=== PATIENT | female | born 1960 | race Caucasian/White ===

== ENCOUNTER → 2020-07-05 | Outpatient (REF) | payer OTHER ==
[2020-07-05 13:30] LABS: HEMOGLOBIN A1c 6.2 %
[2020-07-05 13:33] LABS: ALBUMIN 4.2 GM/DL (3.2-5.2); BILIRUBIN,TOTAL 1.1 MG/DL (0.2-1.0); CALCIUM LEVEL 10.2 MG/DL (8.5-10.1); CHOLESTEROL RISK RATIO 4.05 (<5); CREATININE FOR GFR 1.42 MG/DL (0.55-1.30); GLOMERULAR FILTRATION RATE 40.4 (>51); TOTAL PROTEIN 8.6 GM/DL (6.4-8.2)
== END ==
LOC: M SFHCADAM 08:10
PROVIDERS: ATTEND Family Medicine
DX: E11.69 Type 2 diabetes mellitus with other specified complication (principal); K74.3 Primary biliary cirrhosis; Z86.73 Personal history of transient ischemic attack (TIA), and cerebral infarction without residual deficits

== ENCOUNTER → 2020-08-26 | Outpatient (REF) | payer OTHER ==
[2020-08-26 13:51] LABS: APPEARANCE, URINE CLEAR (CLEAR); BACTERIA, URINE AUTO NEGATIVE (NEGATIVE); BILIRUBIN, URINE AUTO NEGATIVE (NEGATIVE); BLOOD, URINE BLOOD NEGATIVE (NEGATIVE); COLOR, URINE YELLOW (YELLOW); GLUCOSE, URINE (UA) AUTO NEGATIVE (NEGATIVE); KETONE, URINE AUTO NEGATIVE (NEGATIVE); LEUKOCYTE ESTERASE, URINE AUTO TRACE (NEGATIVE); NITRITE, URINE AUTO NEGATIVE (NEGATIVE); PROTEIN, URINE AUTO NEGATIVE (NEGATIVE); RBC, URINE AUTO 0 /HPF (0-3); SPECIFIC GRAVITY URINE AUTO 1.016 (1.002-1.035); SQUAMOUS EPITHELIAL CELL UR AU 4 /HPF (0-6); WBC, URINE AUTO 3 /HPF (0-3)
[2020-08-26 13:57] LABS: ALBUMIN 3.7 GM/DL (3.2-5.2); BILIRUBIN,TOTAL 0.7 MG/DL (0.2-1.0); CREATININE FOR GFR 1.04 MG/DL (0.55-1.30); GLOMERULAR FILTRATION RATE 57.7 (>51); POTASSIUM SERUM 3.4 MEQ/L (3.5-5.1); TOTAL PROTEIN 7.6 GM/DL (6.4-8.2)
== END ==
LOC: M SFHCADAM 09:41
PROVIDERS: ATTEND Family Medicine
DX: E78.00 Pure hypercholesterolemia, unspecified (principal); N17.9 Acute kidney failure, unspecified

== ENCOUNTER → 2020-09-25 | Outpatient (CLI) | payer OTHER ==
--- NOTE | 2020-09-25 08:50 | REP ---
INDICATION: OCCLUSION/STENOSIS OF KAIN CAROTID ARTERIES COMPARISON: None. TECHNIQUE: Larose scale and color Doppler evaluation using linear high frequency transducer Findings: FINDINGS: Two-dimensional larose scale and color images demonstrate intimal thickening along the bilateral common carotid arteries followed by areas of mixed atheromatous plaquing at the carotid bulbs and proximal internal carotid arteries with visible focal areas of narrowing. Normal laminar flow is appreciated without turbulence. Color Doppler interrogation demonstrates normal arterial wave patterns and velocities with no significant spectral broadening. Normal flow direction is appreciated in the bilateral vertebral arteries. ICA peak systolic velocity: Right 87.4 cm/s; Left 99.8 cm/s ICA diastolic velocity: Right 32.9 cm/s; Left 39.7 cm/s ECA peak systolic velocity: Right 94.6 cm/s; Left 60.9 cm/s CCA peak systolic velocity: Right 92.0 cm/s; Left 72.4 cm/s ICA/CCA ratio: Right 0.95 cm/s; Left 1.38 cm/s IMPRESSION: Based on set standards narrowing falls within the less than 50% range. <Electronically signed by Jono John > 09/25/20 [id number]
== END ==
LOC: M RAD 08:00
PROVIDERS: ATTEND Physician Assistant
DX: I65.23 Occlusion and stenosis of bilateral carotid arteries (principal)

== ENCOUNTER → 2021-01-29 | Outpatient (REF) | payer MEDICARE ==
[2021-01-29 17:05] LABS: HEMOGLOBIN A1c 6.8 %
[2021-01-29 17:11] LABS: ALBUMIN 4.1 GM/DL (3.2-5.2); ALT/SGPT 29 U/L (12-78); BILIRUBIN,TOTAL 0.7 MG/DL (0.2-1.0); BLOOD UREA NITROGEN 9 MG/DL (7-18); CARBON DIOXIDE LEVEL 28 MEQ/L (21-32); CHLORIDE LEVEL 102 MEQ/L (98-107); CREATININE FOR GFR 0.98 MG/DL (0.55-1.30); GLOMERULAR FILTRATION RATE > 60.0 (>51); GLUCOSE, FASTING 117 MG/DL (70-100); POTASSIUM SERUM 4.3 MEQ/L (3.5-5.1); SODIUM LEVEL 136 MEQ/L (136-145); TOTAL PROTEIN 7.9 GM/DL (6.4-8.2)
== END ==
LOC: M SFHCADAM 11:09
PROVIDERS: ATTEND Family Medicine
DX: E11.69 Type 2 diabetes mellitus with other specified complication (principal); F32.9 Major depressive disorder, single episode, unspecified

== ENCOUNTER 2021-02-28 10:38 | Inpatient (IN) | payer MEDICARE ==
[~2021-02-28] VITALS: Ht 167.6 cm; Wt 93.3 kg
[2021-02-28] MEDS: ursodioL 300 MG CAP PO SCH (02:00)
[2021-02-28] MEDS ORDERED: ZONI25CA13 PO (10:53)
[2021-02-28] MEDS ORDERED: VENL37.598 PO (10:53)
[2021-02-28] MEDS ORDERED: URSO300C3 (10:53)
[2021-02-28] MEDS ORDERED: ATOR40TA75 PO (10:53)
[2021-02-28] MEDS ORDERED: ECOT81TA5 PO (10:53)
[2021-02-28] MEDS ORDERED: CLOP75TA2 PO (10:53)
[2021-02-28] MEDS ORDERED: HYDR50TAB PO (10:53)
[2021-02-28] MEDS ORDERED: LOSA25TA14 PO (10:53)
[2021-02-28] MEDS ORDERED: NS 1,000 ML IV ONE (13:00)
[2021-02-28 13:25] LABS: BASO # 0.1 10^3/uL (0.0-0.2); BASO % 0.5 % (0.0-1.0); EOS # 0.2 10^3/uL (0.0-0.5); EOS % 1.4 % (0.0-3.0); HEMATOCRIT 42.7 % (36.0-47.0); HEMOGLOBIN 14.7 g/dl (12.0-15.5); LYMPH % 15.6 % (24.0-44.0); MEAN CORPUSCULAR HEMOGLOBIN 29.9 pg (27.0-33.0); MEAN CORPUSCULAR HGB CONC 34.4 g/dl (32.0-36.5); MONO # 1.1 10^3/uL (0.0-0.8); MONO % 8.4 % (2.0-8.0); NEUTROPHILS # 9.2 10^3/uL (1.5-8.5); NEUTROPHILS % 73.3 % (36.0-66.0); PLATELET COUNT, AUTOMATED 400 10^3/uL (150-450); RED BLOOD COUNT 4.91 10^6/uL (4.00-5.40); WHITE BLOOD COUNT 12.5 10^3/uL (4.0-10.0)
[2021-02-28 14:16] LABS: CALCIUM LEVEL 10.2 MG/DL (8.5-10.1); CREATININE FOR GFR 1.84 MG/DL (0.55-1.30); GLOMERULAR FILTRATION RATE 29.9 (>51); POTASSIUM SERUM 2.5 MEQ/L (3.5-5.1); THYROID STIMULATING HORMONE 2.28 uIU/ML (0.358-3.740)
[2021-02-28] MEDS ORDERED: POTASSIUM CHLORIDE 10 MEQ SR TABLET PO ONE ×2 (14:35→18:25)
[2021-02-28] MEDS ORDERED: NS 500 ML IV ONE (14:45)
[2021-02-28 15:00] LABS: MAGNESIUM LEVEL 2.6 MG/DL (1.8-2.4)
--- NOTE | 2021-02-28 15:37 | REP ---
INDICATION: arf. COMPARISON: None. TECHNIQUE: Real-time sonographic evaluation of the kidneys is performed. FINDINGS: Renal cortical echogenicity pattern is normal bilaterally and contours are smooth. There is no hydronephrosis bilaterally. A hypoechoic structure in the lower pole the right kidney measures 1.4 cm in diameter probably representing a cyst. The right kidney measures 9.6 x 4.6 x 4.6 cm. Left renal dimensions are 9.8 x 3.7 x 4.5 cm. The urinary bladder is unremarkable. Ureteral jets could not be seen in the urinary bladder with Doppler color evaluation. IMPRESSION: No hydronephrosis or large calculi. Probable 1.4 cm cyst lower pole right kidney. <Electronically signed by Felix Larose > 02/28/21 [id number]
[2021-02-28] MEDS ORDERED: ZONI50CA11 PO (16:58)
[2021-02-28 17:52] LABS: RSV AMPLIFICATION NEGATIVE (NEGATIVE)
[2021-02-28] MEDS ORDERED: DEXTROSE 50% 50 ML SYRINGE IV PRN (18:25)
[2021-02-28] MEDS ORDERED: MAALOX 30 ML SUSP *UDC PO PRN (18:25)
[2021-02-28] MEDS ORDERED: GLUCAGON INJ 1MG VIAL SC PRN (18:25)
[2021-02-28] MEDS ORDERED: GLUCOSE 4GM CHEW TABLET PO PRN (18:25)
[2021-02-28] MEDS ORDERED: MOM 30ML SUSPENSION UDC PO PRN (18:25)
[2021-02-28] MEDS ORDERED: ACETAMINOPHEN TAB 650MG DOSE (2X325MG) PO PRN (18:25)
[2021-02-28 19:19] LABS: ALBUMIN 4.1 GM/DL (3.2-5.2)
--- NOTE | 2021-02-28 19:24 | HPEPDOC ---
[facility] Medical History & Physical Date of Admission Feb 28, 2021 Date of Service: Feb 28, 2021 Primary Care Physician: DOM FELICIANO DO Other Provider Dr. Collins, neurology Attending Physician: SHANNON MOORE MD History and Physical CHIEF COMPLAINT: Weakness HISTORY OF PRESENT ILLNESS: Cindi is a very pleasant 60yo female w/ notable PMHx of vertebral aretry dissection w/ subsequent CVA (2018), NIDDMII (diet-controlled), htn, and primary biliary cirrhosis who presented to the [facility] ED via personal vehicle driven by her on 02/28/2021, complaining of significant weakness with standing for roughly the past 5 weeks. Patient states that she has had trouble regulating her blood pressure for the past 3 years since she suffered a vertebral artery dissection and CVA in 2018. Since early January 2021, she has had significant weakness whenever standing. She was seen a few weeks ago by her primary care provider (Dr. Jones), at which time her verapamil was stopped and her home losartan dose cut in half to 25 mg daily. In addition to the losartan, patient also takes hydrochlorothiazide. Over the last 2 weeks specifically, her weaknesses has further increased. She is a former plant care worker and has been taking her home orthostatic vital signs since her sxs intensified; and reports every single time they are positive. More times than not when she is testing her home orthostats, or simply standing in general/being active, she has an accompanying 10/10 headache localized to her occipital region that is similar to a headache she developed at the time of her CVA. Accompanying this weakness and frequent headache, is associated instability issues. Patient has not had any falls over these last 5 weeks of symptoms but does have a history falls in the remote past. Patient reports having balance issues since the CVA with accompanying blurrine ss. She has peripheral vision loss in her right eye, which has been worse lately, especially when testing her orthostats. Of note, she reports 1 episode of emesis a few days ago while testing her orthostats at home, which she also had accompanying palpitations. She denies any tinnitus or ear pain. Also of significant note, patient reports a roughly 30 pound weight loss over the past 5 weeks and has recently had a decreased appetite with limited po intake. Patient also follows with neurology (Dr. Collins) who prescribed a new medication to assist in treating her headaches (Zonisamide). Per discussion with ED provider, patient had both a recent brain MRI (11/2020) and a brain MRA (02/20/21); with reported relevant findings of multiple old areas of infarct/occlusion. In addition, patient had mild stenosis of her right internal carotid artery (20%), and left internal carotid artery (3040 percent). Patient called her PCPs office this morning to see if she could be seen earlier than her next scheduled appointment on 03/07/21. Based on her reported symptoms, the PCPs triage staff erected. The patient to her neurologist office. When patient called the neurology office, she was directed to present to the ER. Upon presentation to ED, patient had positive orthostatic vital signs with an initial tachycardic rate. She was administered a total of 1.5 L bolus normal saline. She was found to have a mild leukocytosis (12.5, WBC) with a left shift and significant joint abnormalities; serum potassium 2.5 (sMg 2.6), serum sodium 132 (corrected also 132), serum calcium 10.2 (no albumin ordered). Patient had a serum creatinine of 1.84 (baseline is around 1) with a calculated GFR 29%. An EKG in the ED showed normal sinus rhythm with left axis deviation. A renal ultrasound showed no large calculi or hydronephrosis, and was remarkable only for unlikely 1.4 cm cyst in the lower pole of the right kidney. Patient was subsequently admitted under the care of the hospitalist service for weakness secondary to positive orthostatic hypotension, likely the result of combination of home medications and effects of prior CVA, along with acute kidney injury, and multiple electrolyte abnormalities. Patient is full code. The person she wishes to be contacted with medical updates is her August ([phone]). PAST MEDICAL HISTORY: Vertebral artery dissection and CVA, 2018 (this occurred in [place]) [id number]-[id number] diabetes mellitus II, diet controlled Hypertension Primary biliary cirrhosis PAST SURGICAL HISTORY: [place] teeth extraction Cervical biopsy. Bone biopsy of the right hand middle finger as a child Needle biopsy of the liver approximately 2004 SOCIAL HISTORY: Patient is and lives with her August. They have 1 adult son who lives in [place]. Patient formerly worked as a plant care worker, but stopped after suffering her CVA in 2018. Patient is a former smoker having quit when she was with her son roughly 28 years ago. Prior to that, she smoked for 16 years at a rate of approximately 3/4 packs per day. Patient averages 1 glass of wine or liquor every month. Patient reports occasionally ingesting marijuana po to help with sleep, otherwise she has no current or former illegal/IV drug use history. FAMILY HISTORY: Father: htn Mother: CAD s/p LA 2, hypertension, unspecified heart disease Patient has one sister and one son who are both healthy ALLERGIES: Please see below. REVIEW OF SYSTEMS: CONSTITUTIONAL: Reports significant weakness with standing and ambulation as discussed in HPI as well as unintentional weight loss of approximately 30 pounds in the past 5 weeks. She denies any fever, chills, or night sweats. HEENT: Reports decreased peripheral vision in the right eye that worsens with standing and ambulation. Denies tinnitus, ear pain. CARDIOVASCULAR: Denies any chest pain, chest pressure. Did report one episode of palpitations with home orthostatic vital sign test a few days ago. RESPIRATORY: Denies shortness of breath or cough GASTROINTESTINAL: Reports 1 episode of emesis a few days ago. Otherwise, denies any abdominal pain, nausea, diarrhea, constipation, amoxicillin as, or blood in stool. GENITOURINARY: Denies dysuria or hematuria MUSCULOSKELETAL: Reports significant weakness as discussed in HPI with ambulation and standing. NEUROLOGICAL: Reports frequent 10/10, headaches in the occipital region associated with her weakness episodes when standing or ambulating. HOME MEDICATIONS: Please see below. PHYSICAL EXAMINATION: VITAL SIGNS: Please see below. GENERAL APPEARANCE: Very pleasant moderately obese female lying upright in bed. No acute distress. HEENT: Normocephalic, atraumatic. There is mild left ptosis., PERRLA. Extraocular motion intact with some appreciated transient horizontal nystagmus. CARDIOVASCULAR: Heart sounds are quite distant, making it difficult to accurately discern for murmurs or rubs. 1+ radial pulses bilaterally. Adequate capillary refill. LUNGS: Bibasilar mild coarse breath sounds posteriorly, otherwise no other adventitious breath sounds appreciated. Breathing room air. Speaking in full sentences. Symmetric chest expansion. ABDOMEN: Soft, obese, nontender and nondistended. Difficult to assess for hepatosplenomegaly secondary to habitus. Abdominal striae present. Normoactive bowel sounds present. MUSCULOSKELETAL: 5/5 muscle strength testing of upper and lower extremities bilaterally. EXTREMITIES: Hands and feet are cool to the touch. Appears to be mild swelling in bilateral lower extremities without any appreciated pitting edema. NEUROLOGICAL: Patient has transient horizontal nystagmus on EOMI, as well as decreased right eye confrontation. Slower finger to nose testing on the right versus left, but still appropriate. Remainder of cranial nerve testing, 312 is intact. There is no dysdiadochokinesis. Sensation to light touch is intact of upper and lower extremities bilaterally. PSYCHIATRIC: Very pleasant mood. Appropriate appearing affect. LABORATORY DATA: Please see below. IMAGING: Renal ultrasound, 02/28/2021- FINDINGS: Renal cortical echogenicity pattern is normal bilaterally and contours are smooth. There is no hydronephrosis bilaterally. A hypoechoic structure in the lower pole the right kidney measures 1.4 cm in diameter probably representing a cyst. The right kidney measures 9.6 x 4.6 x 4.6 cm. Left renal dimensions are 9.8 x 3.7 x 4.5 cm. The urinary bladder is unremarkable. Ureteral jets could not be seen in the urinary bladder with Doppler color evaluation. IMPRESSION: No hydronephrosis or large calculi. Probable 1.4 cm cyst lower pole right kidney. MICROBIOLOGY: Please see below. ASSESSMENT & PLAN: This is a very pleasant 60yo female w/ notable h/o vertebral artery dissection & CVA (2018), htn, NIDDMII (diet-controlled), and reported primary ovarian cirrhosis who presented to the ED on 02/28/21 per recommendation of her n eurologist office c/o significant weakness over the past 5 weeks, specifically whenever standing or ambulating. Recent home orthostatic vital sign tests have reportedly been positive, and the patient develops frequent associated occipital headaches reminiscent of her prior CVA. In the ED, orthostatic vital signs were again positive and patient was found to have mild leukocytosis with multiple electrolyte abnormalities, as well as acute kidney injury. #Weakness secondary to orthostatic hypotension, likely the result of home medications and prior CVA -Positive orthostatics in the ED -Blood pressures reportedly have been hard to control since her CVA 3 years ago. She takes both an ARB and hydrochlorothiazide for high blood pressure at home. She also was started on a medication roughly 1 week ago (zonisamide) by her neurologist with known side effect dizziness/lightheadedness. -Recent MRI and MRA images of the brain showed multiple old infarcts/occlusions. In the setting of her persistent orthostatic hypotension, brain occlusions on imaging and hypertensive home medications, patient has multiple reasons for poor superior circulation to the brain/brainstem controlling to symptoms. -Both ARB and hctz held in the setting of weakness and acute kidney injury. Zonisamide held due to aforementioned side effects. -EKG in the ED showed normal sinus rhythm with left axis deviation. -Telemetry has been ordered -An echocardiogram has been ordered to rule out cardiovascular involvement in sy mptomatology. Per review of [facility] records, patient does not have a documented echocardiogram despite CVA 3 years ago. -s/p 1.5 L NS bolus in the ED; maintenance fluids initiated in setting of ari -2 blood cultures were drawn in the setting of hypotension and mild leukocytosis -TSH unremarkable -Fall risk precautions -Assisted ambulation only -PT evaluation ordered #Acute kidney injury -Serum creatinine 1.84; upon review, baseline appears to be around 1 -Patient received 1.5 L and is bolus administration. The ED. -Maintenance fluids have been ordered -Holding home losartan and hydrochlorothiazide -Renal ultrasound. The ED showed no hydronephrosis or large calculi -Avoiding nephrotoxic medications -Since patient is on diuretic medication at home, will use fractional excretion of urea to assess for etiology of ARI -Follow-up metabolic panel ordered for the morning #Multiple electrolyte abnormalities -Hypokalemia (serum potassium 2.5) -possibly 2/2 to home antihypertensive medications, recent poor po intake -s/p 40 mEq KCl PO in the ED -sMg 2.6 -A second 40 mEq PO KCL dose ordered -repeat AM metabolic panel ordered -True hyponatremia (sNa 132; corrected sNa 132) -Serum osmolality, urine sodium, and urine creatinine ordered -Hypercalcemia -sCa 10.2 -Albumin ordered to assess for corrected calcium -Should corrected calcium still be high, will likely order parathyroid hormone and parathyroid-related peptide hormone measurements to assess for possible causes #Leukocytosis -WBC 12.5 with left shift (73% neutrophils) -Status post normal saline bolus fluids in ED with maintenance fluids to follow -2 bcx ordered -Repeat CBC ordered for a.m. #Recent unintentional weight loss -Patient reports approximately 30 pound weight loss over the past 5 weeks. During her symptoms -Will review past medical record to assess for current/most recent cancer screenings (i.e., mammogram, colonoscopy, etc.) in the workup to rule out neoplastic etiology #Hqm-wgltwnd-hsinxolgl diabetes mellitus type 2, diet controlled -Consistent carb diet ordered with fingersticks before meals and at night.- Hypoglycemic protocol with sliding scale insulin #Prior vertebral artery dissection and CVA in 2018 -Recent MRI and MRA brain studies done with outpatient neurology are reported above -Follows with neurology as outpatient -Patient's home statin, Plavix, aspirin, ursodiol continued upon admission #History of hypertension -She was borderline hypotensive in the ED with positive orthostatic vital signs, indicative of orthostatic hypotension -Home hydrochlorothiazide and losartan medications being held in the setting of ARI -We will avoid 2 g sodium diet due to patient's positive orthostatics and decreased blood pressure in the ED #Obesity -BMI 31.5 -Complicates care #Suspected history of HLD -Patient's home statin medication and ursodiol continued upon admission #Suspected mood disorder -Home venlafaxine continued #DVT prophylaxis: sc heparin tid (in setting of rai) Code status: Full code Disposition: Pending further workup of weakness and resolution of acute kidney injury and electrolyte abnormalities. Will be admitted to medical surgical floor with telemetry and anticipated at least two midnight stay. Attending Attestation: Patient independently seen and examined. I have discussed in detail with the resident the findings and plan of treatment as documented by the resident. I a gree with their findings and treatment plan. I will continue to follow the patient during this hospital stay. Vital Signs Vital Signs Date Time Temp Pulse Resp B/P (MAP) Pulse Ox O2 Delivery O2 Flow Rate FiO2 02/28/21 18:45 98.0 66 18 125/79 (94) 100 Room Air Laboratory Data Labs 24H Laboratory Tests 2 02/28/21 13:10: Immature Granulocyte % (Auto) 0.8, Neutrophils (%) (Auto) 73.3H, Lymphocytes (%) (Auto) 15.6L, Monocytes (%) (Auto) 8.4H, Eosinophils (%) (Auto) 1.4, Basophils (%) (Auto) 0.5, Neutrophils # (Auto) 9.2H, Lymphocytes # (Auto) 2.0, Monocytes # (Auto) 1.1H, Eosinophils # (Auto) 0.2, Basophils # (Auto) 0.1, Nucleated Red Blood Cells % (auto) 0.0, Anion Gap 11, Glomerular Filtration Rate 29.9L, Osmolality 285, Calcium Level 10.2H, Magnesium Level 2.6H, Albumin 4.1, Thyroid Stimulating Hormone (TSH) 2.280 02/28/21 16:45: Coronavirus (COVID-19)(PCR) NEGATIVE, Influenza Type A (RT-PCR) NEGATIVE, Influenza Type B (RT-PCR) NEGATIVE, Respiratory Syncytial Virus (PCR) NEGATIVE CBC/BMP Laboratory Tests 02/28/21 13:10 Microbiology Microbiology 02/28/21 Blood Culture, Received Pending 02/28/21 Blood Culture, Received Pending Home Medications Scheduled Aspirin (Ecotrin) 81 Mg Tablet.dr, 81 MG PO DAILY Atorvastatin Calcium (Atorvastatin Calcium) 40 Mg Tablet, 40 MG PO QHS Clopidogrel Bisulfate (Clopidogrel) 75 Mg Tablet, 75 MG PO DAILY Hydrochlorothiazide (Hydrochlorothiazide) 50 Mg Tablet, 25 MG PO DAILY Losartan Potassium (Losartan Potassium) 25 Mg Tablet, 25 MG PO DAILY Ursodiol (Ursodiol) 300 Mg Capsule, 600 MG BID Venlafaxine HCl (Venlafaxine HCl ER) 37.5 Mg Cap.er.24h, 37.5 MG PO DAILY Zonisamide (Zonisamide) 25 Mg Capsule, 25 MG PO BID Zonisamide (Zonisamide) 50 Mg Capsule, 50 MG PO BID TITRATING UP FROM 25MG BID TO 50MG BID. ON 03/07/21 SWITCH TO 50MG QAM AND 25MG QHS. Allergies Coded Allergies: No Known Allergies (Verified Allergy, Unknown, 02/28/21) A-FIB/CHADSVASC A-FIB History Current/History of A-Fib/PAF?: No Current PO Anticoag Therapy: No MARLON CURTIS D.O. Feb 28, 2021 19:24 SHANNON MOORE MD Mar 01, 2021 06:31
--- NOTE | 2021-02-28 19:54 | ECGEPIP ---
[facility] - ED Test Date: 2021-02-28 Pat Name: ALEXA BROUSSARD Department: Room: - Gender: Female Topper Packer: YIN : 1960 Requested By: BRIAN Chavez Order Number: [id number] Reading MD: Brian Villafuerte Measurements Intervals [place] Rate: 83 P: -3 IN: 176 QRS: -35 QRSD: 90 T: 57 QT: 408 QTc: 479 Interpretive Statements Normal sinus rhythm Left axis deviation Nonspecific ST-T wave abnormalities Comparison tracing not on file Electronically Signed on 02-28-2021 19:54:05 EDT by Brian Villafuerte
[2021-02-28] MEDS ORDERED: HumaLOG INSULIN (NovoLOG) PER UNIT SC SCH (21:00)
[2021-02-28] MEDS ORDERED: ATORVASTATIN 20 MG TAB PO SCH (21:00)
[2021-02-28] MEDS: NS 1,000 ML IV SCH (22:01)
[2021-02-28 23:45] VITALS: BP 147/71
[2021-02-28 23:50] VITALS: BP 146/81
[2021-02-28 23:52] VITALS: BP 127/85
[2021-03-01] MEDS: NS 1,000 ML IV SCH (00:14)
[2021-03-01 04:00] VITALS: BP 141/96
[2021-03-01] MEDS: HEPARIN SOD (PORCINE) 5000UNITS/ML 1ML VIAL/SYRINGE SC SCH ×2 (05:31→14:00)
[2021-03-01 06:20] LABS: BASO # 0.1 10^3/uL (0.0-0.2); BASO % 0.7 % (0.0-1.0); EOS # 0.3 10^3/uL (0.0-0.5); EOS % 2.9 % (0.0-3.0); HEMATOCRIT 35.4 % (36.0-47.0); LYMPH # 2.1 10^3/uL (1.5-5.0); MEAN CORPUSCULAR HEMOGLOBIN 30.9 pg (27.0-33.0); MEAN CORPUSCULAR HGB CONC 34.5 g/dl (32.0-36.5); MEAN CORPUSCULAR VOLUME 89.6 fl (80.0-96.0); MONO # 0.8 10^3/uL (0.0-0.8); MONO % 7.6 % (2.0-8.0); NEUTROPHILS % 68.2 % (36.0-66.0); PLATELET COUNT, AUTOMATED 322 10^3/uL (150-450); RED BLOOD COUNT 3.95 10^6/uL (4.00-5.40); WHITE BLOOD COUNT 10.3 10^3/uL (4.0-10.0)
[2021-03-01 06:21] LABS: HEMOGLOBIN 12.2 g/dl (12.0-15.5)
[2021-03-01 06:38] LABS: CALCIUM LEVEL 8.6 MG/DL (8.5-10.1); CREATININE FOR GFR 1.31 MG/DL (0.55-1.30); GLOMERULAR FILTRATION RATE 44.2 (>51); POTASSIUM SERUM 3.2 MEQ/L (3.5-5.1)
[2021-03-01 06:39] LABS: ALBUMIN 3.2 GM/DL (3.2-5.2); BILIRUBIN,TOTAL 0.8 MG/DL (0.2-1.0); MAGNESIUM LEVEL 2.1 MG/DL (1.8-2.4); TOTAL PROTEIN 6.5 GM/DL (6.4-8.2)
[2021-03-01 07:29] VITALS: BP 153/70
[2021-03-01] MEDS: HumaLOG INSULIN (NovoLOG) PER UNIT SC SCH ×2 (07:30→11:20)
[2021-03-01] MEDS: ursodioL 300 MG CAP PO SCH (08:35)
[2021-03-01] MEDS ORDERED: ASPIRIN 81MG ENTERIC TABLET PO SCH (09:00)
[2021-03-01] MEDS ORDERED: VENLAFAXINE **XR** 37.5 MG CAPSULE PO SCH (09:00)
[2021-03-01] MEDS ORDERED: CLOPIDOGREL 75 MG TAB PO SCH (09:00)
[2021-03-01] MEDS ORDERED: POTASSIUM CHLORIDE 10 MEQ SR TABLET PO ONE (09:00)
[2021-03-01 11:52] VITALS: BP 123/82
[2021-03-01 11:53] LABS: CREATININE,RANDOM URINE 62.6 MG/DL
--- NOTE | 2021-03-01 19:48 | DS.PDOC ---
Discharge Summary General Date of Admission Feb 28, 2021 at 16:46 Date of Discharge Monday, March 01, 2021 Primary Care Physician: DOM FELICIANO DO Attending Physician: SHANNON MOORE MD Discharge Summary PROCEDURES PERFORMED DURING STAY: None ADMITTING DIAGNOSES: -Weakness secondary to orthostatic hypotension, likely the result of home medications and prior CVA -Acute kidney injury -Multiple electrolyte abnormalities: Hypokalemia, true hyponatremia, hy percalcemia -Leukocytosis -Recent unintentional weight loss -Osh-ramavdt-igvztlssy diabetes mellitus type 2, diet controlled -Prior vertebral artery dissection and CVA in 2018 -Hypertension -Obesity -Suspected history of hyperlipidemia -Suspected mood disorder DISCHARGE DIAGNOSES: -Weakness secondary to orthostatic hypotension, likely the result of home medications and prior CVA; improved -Acute kidney injury, improved -Multiple electrolyte abnormalities: Hypokalemia, resolved True hyponatremia, resolved Hypercalcemia, resolved -Leukocytosis, resolved -Recent unintentional weight loss; needs outpatient follow-up -Ftk-xgneguj-zrrauytqy diabetes mellitus type 2, diet controlled -Prior vertebral artery dissection and CVA in 2018 -Hypertension -Obesity -Suspected history of hyperlipidemia -Suspected mood disorder COMPLICATIONS/CHIEF COMPLAINT: Acute Renal Failure,Orthostatis. HISTORY OF PRESENT ILLNESS: Cindi is a very pleasant 60yo female w/ notable PMHx of vertebral aretry dissection w/ subsequent CVA (2018), NIDDMII (diet-controlled), htn, and primary biliary cirrhosis who presented to the [facility] ED via personal vehicle driven by her on 02/28/2021, complaining of significant weakness with standing for roughly the past 5 weeks. Patient states that she has had trouble regulating her blood pressure for the past 3 years since she suffered a vertebral artery d issection and CVA in 2018. Since early January 2021, she has had significant weakness whenever standing. She was seen a few weeks ago by her primary care provider (Dr. Jones), at which time her verapamil was stopped and her home losartan dose cut in half to 25 mg daily. In addition to the losartan, patient also takes hydrochlorothiazide. Over the last 2 weeks specifically, her weaknesses has further increased. She is a former forming machine operator and has been taking her home orthostatic vital signs since her sxs intensified; and reports every single time they are positive. More times than not when she is testing her home orthostats, or simply standing in general/being active, she has an accompanying 10/10 headache localized to her occipital region that is similar to a headache she developed at the time of her CVA. Accompanying this weakness and frequent headache, is associated instability issues. Patient has not had any falls over these last 5 weeks of symptoms but does have a history falls in the remote past. Patient reports having balance issues since the CVA with accompanying blurrines s. She has peripheral vision loss in her right eye, which has been worse lately, especially when testing her orthostats. Of note, she reports 1 episode of emesis a few days ago while testing her orthostats at home, which she also had accompanying palpitations. She denies any tinnitus or ear pain. Also of significant note, patient reports a roughly 30 pound weight loss over the past 5 weeks and has recently had a decreased appetite with limited po intake. Patient also follows with neurology (Dr. Collins) who prescribed a new medication to assist in treating her headaches (Zonisamide). Per discussion with ED provider, patient had both a recent brain MRI (11/2020) and a brain MRA (02/20/21); with reported relevant findings of multiple old areas of infarct/occlusion. In addition, patient had mild stenosis of her right internal carotid artery (20%), and left internal carotid artery (3040 percent). Patient called her PCPs office this morning to see if she could be seen earlier than her next scheduled appointment on 03/07/21. Based on her reported symptoms, the PCPs triage staff erected. The patient to her neurologist office. When patient called the neurology office, she was directed to present to the ER. Upon presentation to ED, patient had positive orthostatic vital signs with an initial tachycardic rate. She was administered a total of 1.5 L bolus normal saline. She was found to have a mild leukocytosis (12.5, WBC) with a left shift and significant joint abnormalities; serum potassium 2.5 (sMg 2.6), serum sodium 132 (corrected also 132), serum calcium 10.2 (no albumin had been ordered). Patient had a serum creatinine of 1.84 (baseline is around 1) with a calculated GFR 29%. An EKG in the ED showed normal sinus rhythm with left axis deviation. A renal ultrasound showed no large calculi or hydronephrosis, and was remarkable only for unlikely 1.4 cm cyst in the lower pole of the right kidney. Patient was subsequently admitted under the care of the hospitalist service for weakness secondary to positive orthostatic hypotension, likely the result of combination of home medications and effects of prior CVA, along with acute kidney injury, and multiple electrolyte abnormalities. Patient is full code. The person she wishes to be contacted with medical updates is her August ([phone]). HOSPITAL COURSE: This is a very pleasant 60yo female w/ notable h/o vertebral artery dissection & CVA (2018), htn, NIDDMII (diet-controlled), and reported primary ovarian cir rhosis who presented to the ED on 02/28/21 per recommendation of her neurologist office c/o significant weakness over the past 5 weeks, specifically whenever standing or ambulating. Recent home orthostatic vital sign tests have reportedly been positive, and the patient develops frequent associated occipital headaches reminiscent of her prior CVA. In the ED, orthostatic vital signs were again positive and patient was found to have mild leukocytosis with multiple electrolyte abnormalities, as well as acute kidney injury. #Weakness secondary to orthostatic hypotension, likely the result of home m edications and prior CVA -Positive orthostatics in the ED -Blood pressures reportedly have been hard to control since her CVA 3 years ago. She takes both an ARB and hydrochlorothiazide for high blood pressure at home. She also was started on a medication roughly 1 week ago (zonisamide) by her neurologist with known side effect dizziness/lightheadedness. -Recent MRI and MRA images of the brain showed multiple old infarcts/occlusions. In the setting of her persistent orthostatic hypotension, brain occlusions on imaging and hypertensive home medications, patient has multiple reasons for poor superior circulation to the brain/brainstem controlling to symptoms. -Both ARB and hctz were held in the setting of weakness and acute kidney injury. Zonisamide held due to aforementioned side effects. -EKG in the ED showed normal sinus rhythm with left axis deviation. -Patient was on telemetry upon admission. -An echocardiogram has been ordered to rule out cardiovascular involvement in symptomatology. Report of echo was unremarkable other than grade 1 diastolic dysfunction. -Per review of [facility] records, patient does not have a documented echocardiogram despite CVA 3 years ago. -s/p 1.5 L NS bolus in the ED; maintenance fluids were started in the setting of her presenting ARI -2 blood cultures were drawn in the setting of hypotension and mild leukocytosis and showed no growth after 24 hours at time of discharge -TSH unremarkable -Fall risk precautions were ordered -Assisted ambulation only was ordered -PT evaluation ordered and after evaluation, they recommended simply being discharged home #Acute kidney injury, improved -Initial serum creatinine was 1.84; upon review, baseline appears to be around 1 -Creatinine improved to 1.3 on day 2 of admission -Patient received 1.5 L and is bolus administration in the ED. -Maintenance fluids were ordered upon admission -Home losartan and hydrochlorothiazide were held upon admission -Renal ultrasound ordered in the ED which showed no hydronephrosis or large calculi -Nephrotoxic medications were avoided -Fractional excretion of urea was used for calculation of etiology of kidney disease as patient is on home diuretics. #Multiple electrolyte abnormalities -Hypokalemia, improved: (serum potassium 2.5 initially, improved to 3.2 on day 2 and was subsequently given another 40 mEq of oral potassium, chloride -possibly 2/2 to home antihypertensive medications, recent poor po intake -s/p 40 mEq KCl PO in the ED -sMg was not low -A second 40 mEq PO KCL dose ordered on day of admission, repeat 40 mEq dose given on day 2 of hospital stay -True hyponatremia, resolved: (sNa 132; corrected sNa 132; day 2. Serum sodium was 138) -Serum osmolality, urine sodium, and urine creatinine were all ordered upon admission -Hypercalcemia, resolved -sCa 10.2 initially, was 8.6 on repeat measurement -Albumin ordered to assess for corrected calcium -PCP can give consideration to possibly ordering parathyroid hormone and parathyroid-related peptide values upon outpatient #Leukocytosis, improved -Initial WBC 12.5 with left shift (73% neutrophils); WBC improved to 10.3 on day of discharge with a decreased left shift -Status post normal saline bolus fluids in ED with maintenance fluids to follow -2 bcx ordered and had no growth after 24 hours #Recent unintentional weight loss -Patient reported approximately 30 pound weight loss over the past 5 weeks at time of admission -She reports being up-to-date on her mammograms and colonoscopies. Upon questioning -This is a significant issue that needs to be addressed by primary care provider upon outpatient follow-up #Ooe-koxdexj-ghdmqxhsa diabetes mellitus type 2, diet controlled -Consistent carb diet ordered with fingersticks before meals and at night were ordered upon admission. -Hypoglycemic protocol with sliding scale insulin was also ordered upon admission. #Prior vertebral artery dissection and CVA in 2018 -Recent MRI and MRA brain studies done with outpatient neurology are reported above -Follows with neurology as outpatient -Patient's home statin, Plavix, aspirin, ursodiol were all continued upon admission #History of hypertension -She was borderline hypotensive in the ED with positive orthostatic vital signs, indicative of orthostatic hypotension -Home hydrochlorothiazide and losartan medications were held in the setting of ARI -Collaborative decision was made to avoid 2 g sodium diet . Upon admission due to patient's positive orthostatics and decreased blood pressure in the ED #Obesity -BMI 31.5 -Complicates care, both inpatient and outpatient. #Suspected history of HLD -Patient's home statin medication and ursodiol were continued upon admission #Suspected mood disorder -Home venlafaxine was continued upon admission #DVT prophylaxis: sc heparin tid ordered in the setting of patient's acute renal failure. Code status: Full code DISCHARGE MEDICATIONS: Please see below. ALLERGIES: Please see below. PHYSICAL EXAMINATION ON DISCHARGE: VITAL SIGNS: Please see below. GENERAL APPEARANCE: Very pleasant moderately obese female lying upright in bed. No acute distress. HEENT: Normocephalic, atraumatic. There is mild left ptosis. PERRLA. CARDIOVASCULAR: Heart sounds remain quite distant, making it difficult to accurately discern for murmurs or rubs. 1+ radial pulses bilaterally. Adequate capillary refill. LUNGS: Bibasilar mild coarse breath sounds posteriorly remain, otherwise no other adventitious breath sounds appreciated. Breathing room air. Speaking in full sentences. Symmetric chest expansion. ABDOMEN: Soft, obese. No distention or tenderness. Difficult to assess for hepatosplenomegaly secondary to habitus. Abdominal striae present. Normoactive bowel sounds present. MUSCULOSKELETAL: 5/5 muscle strength testing of upper and lower extremities bilaterally. EXTREMITIES: Hands and feet are cool to the touch. Appears to be mild swelling in bilateral lower extremities without any appreciated pitting edema. NEUROLOGICAL: Horizontal nystagmus on EOMI, as well as decreased right eye confrontation. Slower finger to nose testing on the right versus left, but still appropriate. Remainder of cranial nerve testing, 312 is intact. There is no dysdiadochokinesis. Sensation to light touch is intact of upper and lower extremities bilaterally. PSYCHIATRIC: Very pleasant mood. Appropriate appearing affect. LABORATORY DATA: Please see below. IMAGING: Renal ultrasound, 02/28/21 FINDINGS: Renal cortical echogenicity pattern is normal bilaterally and contours are smooth. There is no hydronephrosis bilaterally. A hypoechoic structure in the lower pole the right kidney measures 1.4 cm in diameter probably representing a cyst. The right kidney measures 9.6 x 4.6 x 4.6 cm. Left renal dimensions are 9.8 x 3.7 x 4.5 cm. The urinary bladder is unremarkable. Ureteral jets could not be seen in the urinary bladder with Doppler color evaluation. IMPRESSION: No hydronephrosis or large calculi. Probable 1.4 cm cyst lower pole right kidney. Transthoracic echocardiogram, 03/01/21 2D COMMENTS: 1. Technically limited study due to poor acoustic window. The left ventricle size is normal with a normal left ventricular wall thickness and systolic function. The estimated left ventricular systolic ejection fraction is 60% to 65%. 2. Normal left atrium. Normal right atrium and right ventricle noted in limited views. 3. The atrial septum appeared to be normal without evidence of defect or shunt. 4. Normal aortic root. 5. No pericardial effusion seen. 6. The aortic valve, mitral valve, and tricuspid valve appear to be normal in limited views. The pulmonic valve and proximal pulmonary artery branches were not well visualized. 7. The inferior vena cava was not well visualized. DOPPLER: No significant valvular abnormalities detected. Abnormal relaxation pattern was noted across the mitral valve leaflets, as well as the mitral valve annulus consistent with features of grade 1 left ventricular diastolic dysfunction. IMPRESSION: 1. Technically limited study due to poor acoustic window. 2. Normal global left ventricular systolic function. There were some features of grade 1 left ventricular diastolic dysfunction manifested by abnormal relaxation. 3. No significant valvular abnormalities. 4. Bubble study was done, inconclusive because the entire study was technically limited due to poor acoustic window. PROGNOSIS: Fair ACTIVITY: As tolerated DIET: -Fluid restriction DISPOSITION: [facility]. DISCHARGE INSTRUCTIONS & ITEMS TO FOLLOWUP ON ON OUTPATIENT: -Patient is to follow up with primary care physician in 35 days and to reevaluate blood pressures with primary care provider upon said follow-up. -Continue to follow with neurology as outpatient per previous schedule -If symptoms return or worsen, please contact primary care provider or go to the emergency room. DISCHARGE CONDITION: Stable TIME SPENT ON DISCHARGE: 36 minutes Vital Signs/I&Os Vital Signs Date Time Temp Pulse Resp B/P (MAP) Pulse Ox O2 Delivery O2 Flow Rate FiO2 03/01/21 11:52 97.0 63 18 123/82 (96) 100 Room Air I&O- Last 24 Hours up to 6 AM 03/01/21 06:00 Intake Total 1750 ml Output Total 500 ml Balance 1250 ml Laboratory Data Labs 24H Laboratory Tests 2 03/01/21 00:10: Bedside Glucose (Misc Panel) 129H 03/01/21 05:52: Immature Granulocyte % (Auto) 0.6, Neutrophils (%) (Auto) 68.2H, Lymphocytes (%) (Auto) 20.0L, Monocytes (%) (Auto) 7.6, Eosinophils (%) (Auto) 2.9, Basophils (%) (Auto) 0.7, Neutrophils # (Auto) 7.0, Lymphocytes # (Auto) 2.1, Monocytes # (Auto) 0.8, Eosinophils # (Auto) 0.3, Basophils # (Auto) 0.1, Nucleated Red Blood Cells % (auto) 0.0, Anion Gap 8, Glomerular Filtration Rate 44.2L, Calcium Level 8.6#, Magnesium Level 2.1, Total Bilirubin 0.8, Aspartate Amino Transf (AST/SGOT) 27, Alanine Aminotransferase (ALT/SGPT) 29, Alkaline Phosphatase 254H, Total Protein 6.5, Albumin 3.2#, Albumin/Globulin Ratio 1.0L 03/01/21 10:59: Urine Color YELLOW, Urine Appearance CLEAR, Urine pH 7.0, Urine Specific [place] 1.008, Urine Protein NEGATIVE, Urine Glucose (UA) NEGATIVE, Urine Ketones NE GATIVE, Urine Blood NEGATIVE, Urine Nitrite NEGATIVE, Urine Bilirubin NEGATIVE, Urine Urobilinogen 0.2, Urine Leukocyte Esterase NEGATIVE, Urine WBC (Auto) 2, Urine RBC (Auto) 0, Urine Hyaline Casts (Auto) 0, Urine Bacteria (Auto) NEGATIVE, Urine Squamous Epithelial Cells 1, Urine Sperm (Auto) , Urine Osmolality 387, Urine Random Creatinine 62.6, Urine Random Sodium 125, Urine Random Urea Nitrogen 224 03/01/21 11:17: Bedside Glucose (Misc Panel) 147H CBC/BMP Laboratory Tests 03/01/21 05:52 FSBS Laboratory Tests Test 03/01/21 00:10 03/01/21 11:17 Range/Units Bedside Glucose (Misc Panel) 129 147 70-105 MG/DL Microbiology Microbiology 02/28/21 Blood Culture - Preliminary, Resulted No growth after 24 hours . All specim... 02/28/21 Blood Culture - Preliminary, Resulted No growth after 24 hours . All specim... Discharge Medications Scheduled Aspirin (Ecotrin) 81 Mg Tablet.dr, 81 MG PO DAILY, (Reported) Atorvastatin Calcium (Atorvastatin Calcium) 40 Mg Tablet, 40 MG PO QHS, (Reported) Clopidogrel Bisulfate (Clopidogrel) 75 Mg Tablet, 75 MG PO DAILY, (Reported) Losartan Potassium (Losartan Potassium) 25 Mg Tablet, 25 MG PO DAILY, (Reported) Ursodiol (Ursodiol) 300 Mg Capsule, 600 MG BID, (Reported) Venlafaxine HCl (Venlafaxine HCl ER) 37.5 Mg Cap.er.24h, 37.5 MG PO DAILY, (Reported) Zonisamide (Zonisamide) 25 Mg Capsule, 25 MG PO BID, (Reported) Zonisamide (Zonisamide) 50 Mg Capsule, 50 MG PO BID, (Reported) TITRATING UP FROM 25MG BID TO 50MG BID. ON 03/07/21 SWITCH TO 50MG QAM AND 25MG QHS. Allergies Coded Allergies: No Known Allergies (Verified Allergy, Unknown, 02/28/21) MARLON CURTIS D.O. Mar 01, 2021 19:48
--- NOTE | 2021-03-01 20:25 | ECHO ---
ECHOCARDIOGRAM DATE OF PROCEDURE: 03/01/2021 Age: 60 Gender: Female Height: Weight: REFERRING PHYSICIAN: Aditya Sheridan DO. PATIENT LOCATION: Room 3227. REASON FOR STUDY: Cerebrovascular accident (CVA) . 2D MEASUREMENTS: IVS 1.1 cm LVPW 1.2 cm LV 3.5 cm Aorta 3.4 cm LA 3.3 cm DOPPLER MEASUREMENT Peak velocity across the LVOT 0.9 m/s Mitral E 0.67 Mitral A 0.92 with a ratio of 0.73 2D COMMENTS: 1. Technically limited study due to poor acoustic window. The left ventricle size is normal with a normal left ventricular wall thickness and systolic function. The estimated left ventricular systolic ejection fraction is 60% to 65%. 2. Normal left atrium. Normal right atrium and right ventricle noted in limited views. 3. The atrial septum appeared to be normal without evidence of defect or shunt. 4. Normal aortic root. 5. No pericardial effusion seen. 6. The aortic valve, mitral valve, and tricuspid valve appear to be normal in limited views. The pulmonic valve and proximal pulmonary artery branches were not well visualized. 7. The inferior vena cava was not well visualized. DOPPLER: No significant valvular abnormalities detected. Abnormal relaxation pattern was noted across the mitral valve leaflets, as well as the mitral valve annulus consistent with features of grade 1 left ventricular diastolic dysfunction. IMPRESSION: 1. Technically limited study due to poor acoustic window. 2. Normal global left ventricular systolic function. There were some features of grade 1 left ventricular diastolic dysfunction manifested by abnormal relaxation. 3. No significant valvular abnormalities. 4. Bubble study was done, inconclusive because the entire study was technically limited due to poor acoustic window.
== END 2021-03-01 14:58 | disposition hospice, home (50) | DRG 948 ==
LOC: M ED 10:38 → M ED INP 16:46 → ENRESERV 22:17 → M PCU 23:37
PROVIDERS: ADMIT Internal Medicine; ATTEND Internal Medicine
DX: R53.1 Weakness (principal); N17.9 Acute kidney failure, unspecified; E87.1 Hypo-osmolality and hyponatremia; Z86.73 Personal history of transient ischemic attack (TIA), and cerebral infarction without residual deficits; E10.9 Type 1 diabetes mellitus without complications; I10 Essential (primary) hypertension; K74.5 Biliary cirrhosis, unspecified; R51.9 Headache, unspecified; Z87.891 Personal history of nicotine dependence; I95.1 Orthostatic hypotension; E87.8 Other disorders of electrolyte and fluid balance, not elsewhere classified; E86.0 Dehydration; E87.6 Hypokalemia; E83.52 Hypercalcemia; D72.829 Elevated white blood cell count, unspecified; R63.4 Abnormal weight loss; E66.9 Obesity, unspecified; Z68.31 Body mass index [BMI] 31.0-31.9, adult; E78.5 Hyperlipidemia, unspecified; F39 Unspecified mood [affective] disorder; Z20.822 Contact with and (suspected) exposure to COVID-19; Z79.82 Long term (current) use of aspirin; Z79.899 Other long term (current) drug therapy

== ENCOUNTER → 2021-03-07 | Outpatient (REF) | payer MEDICARE ==
[~2021-03-07] MED LIST: ATOR40TA75 PO; CLOP75TA2 PO; ECOT81TA5 PO; HYDR50TAB PO; LOSA25TA14 PO; URSO300C3; VENL37.598 PO; ZONI25CA13 PO; ZONI50CA11 PO
[2021-03-07 13:41] LABS: ALBUMIN 3.4 GM/DL (3.2-5.2); ALT/SGPT 29 U/L (12-78); BILIRUBIN,TOTAL 0.4 MG/DL (0.2-1.0); BLOOD UREA NITROGEN 9 MG/DL (7-18); CALCIUM LEVEL 9.4 MG/DL (8.5-10.1); CARBON DIOXIDE LEVEL 25 MEQ/L (21-32); CHLORIDE LEVEL 111 MEQ/L (98-107); CREATININE FOR GFR 0.97 MG/DL (0.55-1.30); GLOMERULAR FILTRATION RATE > 60.0 (>51); GLUCOSE, FASTING 100 MG/DL (70-100); POTASSIUM SERUM 4.8 MEQ/L (3.5-5.1); SODIUM LEVEL 141 MEQ/L (136-145); TOTAL PROTEIN 6.8 GM/DL (6.4-8.2)
== END ==
LOC: M SFHCADAM 10:25
PROVIDERS: ATTEND Family Medicine
DX: N17.9 Acute kidney failure, unspecified (principal); E87.6 Hypokalemia

== ENCOUNTER → 2021-03-17 | Outpatient (CLI) | payer MEDICARE ==
--- NOTE | 2021-03-17 14:33 | REP ---
INDICATION: MASS OF RT SIDE OF NECK. COMPARISON: None. TECHNIQUE: Bilateral neck soft tissue sonography. Left side for comparison. Right-sided in the area of interest. FINDINGS: Multiple bilateral cervical lymph nodes are observed. In the right neck in the area the palpable lump there are 4 identifiable lymph nodes measured as follows: 1.1 x 0.6 x 0.6, 1.6 x 0.5 x 1.3, 0.9 x 0.5 x 0.9, and 1.1 x 0.6 x 0.9 cm respectively. In these lymph nodes have preserved hilar architecture but appears somewhat hypertrophied with cortical thickening. In the left neck there are 2 lymph nodes visible in the same area measured as follows: 0.8 x 0.3 x 0.8 and 2.4 x 0.6 x 1.3 cm. The visualized lymph nodes in the left neck have similar morphology to those seen on the right, that is, somewhat hypertrophied. IMPRESSION: Bilateral cervical lymphadenopathy. This is nonspecific. Recommend soft tissue neck CT study for better visualization of extent and as a baseline. <Electronically signed by Flaco Sanchez > 03/17/21 [id number]
== END ==
LOC: M RAD 13:02
PROVIDERS: ATTEND Family Medicine
DX: R22.1 Localized swelling, mass and lump, neck (principal)

== ENCOUNTER → 2021-04-01 | Outpatient (CLI) | payer MEDICARE ==
[~2021-04-01] MED LIST changes: +ISOVUE-370 76% 100ML VIAL As Ordered ONE
--- NOTE | 2021-04-02 11:27 | REPVR ---
PROCEDURE INFORMATION: Exam: CT Neck With Contrast Exam date and time: 04/01/2021 4:22 PM Age: 60 years old Clinical indication: Other: Lymphadenopathy TECHNIQUE: Imaging protocol: Computed tomography images of the neck with contrast. Radiation optimization: All CT scans at this facility use at least one of these dose optimization techniques: automated exposure control; mA and/or kV adjustment per patient size (includes targeted exams where dose is matched to clinical indication); or iterative reconstruction. Contrast material: ISOVUE 370; Contrast volume: 75 ml; Contrast route: INTRAVENOUS (IV); COMPARISON: Thyroid, ST head+neck US 03/17/2021 1:18 PM FINDINGS: Paranasal sinuses: There are retention cysts/polyps in the maxillary sinuses bilaterally. Nasopharynx: Unremarkable. Oropharynx: No significant tonsillar enlargement. Hypopharynx: Unremarkable. Larynx: Normal epiglottis. Retropharyngeal space: Unremarkable. Submandibular/Parotid glands: There is fatty replacement of the the submandibular bilaterally. Thyroid: Normal. No enlarged or calcified nodules. Lymph nodes: There are nonenlarged level 2, 5 and level 3 lymph nodes. No enlarged cervical lymph nodes are present. Trachea: Visualized trachea is unremarkable. Lungs: Unremarkable as visualized. Bones/joints: There are some degenerative changes of the cervical spine. Soft tissues: No other specific soft tissue abnormality. IMPRESSION: 1. Chronic sialoadenitis of the submandibular glands. 2. Nonenlarged cervical lymph nodes, a nonspecific finding. Electronically signed by: Ricky Self On 04/02/2021 11:27:21 AM
== END ==
LOC: M RAD 16:00
PROVIDERS: ATTEND Family Medicine
DX: K11.20 Sialoadenitis, unspecified (principal); R59.0 Localized enlarged lymph nodes
CPT/HCPCS: 70491; Q9967

== ENCOUNTER → 2022-05-05 | Outpatient (REF) | payer MEDICARE ==
[~2022-05-05] MED LIST changes: -ISOVUE-370 76% 100ML VIAL As Ordered ONE; +LOSA25TA13 PO; -LOSA25TA14 PO
[2022-05-05 18:27] LABS: BASO # 0.1 10^3/uL (0.0-0.2); BASO % 0.9 % (0.0-1.0); EOS # 0.3 10^3/uL (0.0-0.5); EOS % 3.5 % (0.0-3.0); HEMATOCRIT 37.6 % (36.0-47.0); HEMOGLOBIN 12.7 g/dl (12.0-15.5); LYMPH # 1.8 10^3/uL (1.5-5.0); LYMPH % 23.7 % (24.0-44.0); MEAN CORPUSCULAR HEMOGLOBIN 33.5 pg (27.0-33.0); MEAN CORPUSCULAR HGB CONC 33.8 g/dl (32.0-36.5); MEAN CORPUSCULAR VOLUME 99.2 fl (80.0-96.0); MONO # 0.6 10^3/uL (0.0-0.8); MONO % 8.2 % (2.0-8.0); NEUTROPHILS # 4.7 10^3/uL (1.5-8.5); NEUTROPHILS % 63.2 % (36.0-66.0); PLATELET COUNT, AUTOMATED 360 10^3/uL (150-450); RED BLOOD COUNT 3.79 10^6/uL (4.00-5.40); WHITE BLOOD COUNT 7.4 10^3/uL (4.0-10.0)
[2022-05-05 18:55] LABS: ALBUMIN 3.9 GM/DL (3.2-5.2); ALT/SGPT 38 U/L (12-78); BILIRUBIN,TOTAL 0.9 MG/DL (0.2-1.0); BLOOD UREA NITROGEN 12 MG/DL (7-18); CALCIUM LEVEL 9.5 MG/DL (8.8-10.2); CARBON DIOXIDE LEVEL 26 MEQ/L (21-32); CHLORIDE LEVEL 107 MEQ/L (98-107); CREATININE FOR GFR 1.16 MG/DL (0.55-1.30); GLOMERULAR FILTRATION RATE 50.7 (>45); GLUCOSE, FASTING 125 MG/DL (70-100); POTASSIUM SERUM 3.4 MEQ/L (3.5-5.1); RHEUMATOID FACTOR QUANT < 10.0 IU/ML (<15.0); SODIUM LEVEL 140 MEQ/L (136-145); TOTAL PROTEIN 7.6 GM/DL (6.4-8.2)
[2022-05-05 19:03] LABS: ERYTHROCYTE SEDIMENTATION RATE 26 mm/hr (0-30)
[2022-05-07 13:09] LABS: ANTI DOUBLE STRAND-DNA AB 25 IU/mL (0-9); ANTINUCLEAR ANTIBODIES DIRECT Positive (Negative); RNP ANTIBODIES 0.6 AI (0.0-0.9); SJOGREN'S ANTI SS-A <0.2 AI (0.0-0.9); SJOGREN'S ANTI SS-B <0.2 AI (0.0-0.9); SMITH ANTIBODIES <0.2 AI (0.0-0.9)
== END ==
LOC: M LABDRWCV 17:36
PROVIDERS: ATTEND Psychiatry & Neurology Neurology
DX: R51.9 Headache, unspecified (principal); Z79.82 Long term (current) use of aspirin; Z79.899 Other long term (current) drug therapy

== ENCOUNTER → 2022-05-05 | Outpatient (REF) | payer MEDICARE ==
[2022-05-05 18:28] LABS: HEMOGLOBIN A1c 5.9 %
[2022-05-05 19:01] LABS: FREE T4 1.16 NG/DL (0.76-1.46); THYROID STIMULATING HORMONE 1.13 uIU/ML (0.358-3.740)
== END ==
LOC: M SFHCCAPE 10:50
PROVIDERS: ATTEND Physician Assistant
DX: R59.0 Localized enlarged lymph nodes (principal); E11.69 Type 2 diabetes mellitus with other specified complication; F32.9 Major depressive disorder, single episode, unspecified

== ENCOUNTER → 2022-05-07 | Outpatient (REF) | payer MEDICARE | LOC: M LABDRWAD 12:36 → M LABDRWCV 12:36 | PROVIDERS: ATTEND Psychiatry & Neurology Neurology | DX: R51.9 Headache, unspecified (principal) ==

== ENCOUNTER 2022-06-13 09:45 | Emergency (ER) | payer MEDICARE ==
[~2022-06-13] VITALS: Ht 165.1 cm; Wt 82.3 kg
[2022-06-13 09:45] VITALS: BP 149/86
[2022-06-13] MEDS ORDERED: AMLO1TAB24 (10:02)
[2022-06-13] MEDS ORDERED: AMIT50TA (10:02)
[2022-06-13 11:43] LABS: BASO % 0.5 % (0.0-1.0); EOS # 0.3 10^3/uL (0.0-0.5); EOS % 4.1 % (0.0-3.0); HEMATOCRIT 36.6 % (36.0-47.0); HEMOGLOBIN 12.1 g/dl (12.0-15.5); LYMPH # 1.7 10^3/uL (1.5-5.0); LYMPH % 21.8 % (24.0-44.0); MEAN CORPUSCULAR HEMOGLOBIN 34.4 pg (27.0-33.0); MEAN CORPUSCULAR HGB CONC 33.1 g/dl (32.0-36.5); MONO # 0.4 10^3/uL (0.0-0.8); NEUTROPHILS # 5.2 10^3/uL (1.5-8.5); NEUTROPHILS % 68.1 % (36.0-66.0); PLATELET COUNT, AUTOMATED 399 10^3/uL (150-450); RED BLOOD COUNT 3.52 10^6/uL (4.00-5.40); WHITE BLOOD COUNT 7.6 10^3/uL (4.0-10.0)
[2022-06-13 12:26] LABS: ALT/SGPT 33 U/L (12-78); BILIRUBIN,DIRECT 0.3 MG/DL (0.0-0.2); BILIRUBIN,TOTAL 0.5 MG/DL (0.2-1.0); BLOOD UREA NITROGEN 16 MG/DL (7-18); CALCIUM LEVEL 9.4 MG/DL (8.8-10.2); CARBON DIOXIDE LEVEL 26 MEQ/L (21-32); CHLORIDE LEVEL 108 MEQ/L (98-107); CREATININE FOR GFR 0.95 MG/DL (0.55-1.30); GLOMERULAR FILTRATION RATE > 60.0 (>45); GLUCOSE, FASTING 120 MG/DL (70-100); LIPASE 275 U/L (73-393); POTASSIUM SERUM 4.2 MEQ/L (3.5-5.1); SODIUM LEVEL 140 MEQ/L (136-145); TOTAL PROTEIN 7.7 GM/DL (6.4-8.2)
[2022-06-13] MEDS ORDERED: KETOROLAC 30 MG/ML 1ML VIAL IV ONE (12:30)
[2022-06-13] MEDS ORDERED: ISOVUE-370 76% 100ML VIAL As Ordered ONE (12:36)
[2022-06-13] MEDS ORDERED: CYCLOBENZAPRINE 5MG TABLET PO ONE (14:55)
[2022-06-13] MEDS ORDERED: CYCL5TAB PO (15:32)
== END 2022-06-13 15:58 | disposition home or self-care (01) ==
LOC: M ED 09:45
DX: M62.830 Muscle spasm of back (principal); R59.0 Localized enlarged lymph nodes; E11.9 Type 2 diabetes mellitus without complications; I10 Essential (primary) hypertension; K76.0 Fatty (change of) liver, not elsewhere classified; Z79.01 Long term (current) use of anticoagulants
CPT/HCPCS: 74177; 76705; 80048; 80076; 83690; 85025; 96374; 99283; J1885; Q9967

== ENCOUNTER → 2022-12-03 | Outpatient (CLI) | payer MEDICARE ==
[~2022-12-03] MED LIST changes: +AMIT50TA; +AMLO1TAB24; +CYCL5TAB PO
[2022-12-03 11:09] LABS: ALBUMIN 4.3 G/DL (3.2-5.2); BILIRUBIN,TOTAL 1.4 MG/DL (0.3-1.2); CALCIUM LEVEL 9.8 MG/DL (8.3-10.6); CREATININE FOR GFR 1.05 MG/DL (0.55-1.30); GLOMERULAR FILTRATION RATE 56.7 (>45); POTASSIUM SERUM 3.4 MMOL/L (3.5-5.1); TOTAL PROTEIN 7.8 G/DL (5.7-8.2)
[2022-12-03 11:24] LABS: HEMOGLOBIN A1c 6.2 % (4.0-6.0)
== END ==
LOC: M LAB 09:52
PROVIDERS: ATTEND Family Medicine
DX: E11.69 Type 2 diabetes mellitus with other specified complication (principal)

== ENCOUNTER → 2023-03-31 | Outpatient (CLI) | payer MEDICARE | LOC: M ADAMS 11:19 | PROVIDERS: ATTEND Family Medicine | DX: M25.532 Pain in left wrist (principal) ==

== ENCOUNTER 2023-04-16 06:54 | Day surgery (SDC) | payer MEDICARE ==
[~2023-04-16] VITALS: Ht 165.1 cm; Wt 94.5 kg
[~2023-04-16 06:54] MED LIST changes: -AMIT50TA; +AMIT50TA PO; -AMLO1TAB24; +AMLO1TAB24 PO; +FERR325T3 PO; +NS 1,000 ML IV ONE
[2023-04-16] MEDS ORDERED: LIDOCAINE 2% 100MG/5ML SDV (FOR ANES.) As Ordered ONE (07:07)
[2023-04-16] MEDS ORDERED: propofoL 200 MG/20 ML VIAL As Ordered ONE (07:07)
[2023-04-16 08:08] VITALS: TEMP 96.8
[2023-04-16 08:23] VITALS: BP 131/70; O2SAT 99
== END 2023-04-16 08:38 | disposition home or self-care (01) ==
LOC: M OPP 06:54
PROVIDERS: ATTEND Internal Medicine Gastroenterology
DX: Z12.11 Encounter for screening for malignant neoplasm of colon (principal); K64.4 Residual hemorrhoidal skin tags; K64.8 Other hemorrhoids; K62.89 Other specified diseases of anus and rectum; K57.30 Diverticulosis of large intestine without perforation or abscess without bleeding; Z87.891 Personal history of nicotine dependence; Z79.02 Long term (current) use of antithrombotics/antiplatelets; Z79.899 Other long term (current) drug therapy; Z88.0 Allergy status to penicillin

== ENCOUNTER → 2024-01-12 | Outpatient (CLI) | payer MEDICARE ==
[~2024-01-12] MED LIST changes: -NS 1,000 ML IV ONE
== END ==
LOC: M ADAMS 11:55
PROVIDERS: ATTEND Family Medicine
DX: R05.2 Subacute cough (principal)

== ENCOUNTER → 2024-01-12 | Outpatient (REF) | payer MEDICARE ==
[2024-01-12 18:05] LABS: BASO # 0.1 10^3/uL (0.0-0.2); BASO % 0.7 % (0.0-1.0); EOS # 0.5 10^3/uL (0.0-0.5); EOS % 5.1 % (0.0-3.0); HEMATOCRIT 43.2 % (36.0-47.0); LYMPH # 2.5 10^3/uL (1.5-5.0); LYMPH % 25.5 % (24.0-44.0); MEAN CORPUSCULAR HEMOGLOBIN 32.2 pg (27.0-33.0); MEAN CORPUSCULAR HGB CONC 32.4 g/dl (32.0-36.5); MEAN CORPUSCULAR VOLUME 99.3 fl (80.0-96.0); MONO # 0.7 10^3/uL (0.0-0.8); MONO % 7.2 % (2.0-8.0); NEUTROPHILS % 60.8 % (36.0-66.0); PLATELET COUNT, AUTOMATED 387 10^3/uL (150-450); RED BLOOD COUNT 4.35 10^6/uL (4.00-5.40); WHITE BLOOD COUNT 9.9 10^3/uL (4.0-10.0)
[2024-01-12 18:06] LABS: ALBUMIN 3.8 G/DL (3.2-5.2); ALKALINE PHOSPHATASE 346 U/L (46-116); ALT/SGPT 34 U/L (7.0-40); AST/SGOT 24 U/L (<34); BILIRUBIN,TOTAL 0.7 MG/DL (0.3-1.2); BLOOD UREA NITROGEN 12 MG/DL (9-23); CALCIUM LEVEL 9.8 MG/DL (8.3-10.6); CARBON DIOXIDE LEVEL 26 MMOL/L (20-31); CHLORIDE LEVEL 107 MMOL/L (98-107); CHOLESTEROL LEVEL 195 MG/DL (<200); CHOLESTEROL RISK RATIO 4.04 (<5); CREATININE FOR GFR 0.84 MG/DL (0.55-1.30); FREE T4 1.21 NG/DL (0.89-1.76); GLOMERULAR FILTRATION RATE > 60.0 (>45); GLUCOSE, FASTING 112 MG/DL (74-106); HDL CHOLESTEROL 48.2 MG/DL (>40); LDL CHOLESTEROL 125.2 MG/DL (<100); NON-HDL-C 146.8 MG/DL; POTASSIUM SERUM 5.2 MMOL/L (3.5-5.1); SODIUM LEVEL 140 MMOL/L (136-145); TOTAL PROTEIN 7.6 G/DL (5.7-8.2); TRIGLYCERIDES LEVEL 108 MG/DL (<150)
[2024-01-12 18:07] LABS: THYROID STIMULATING HORMONE 1.025 uIU/ML (0.55-4.78)
[2024-01-12 18:25] LABS: HEMOGLOBIN A1c 6.2 % (4.0-6.0)
== END ==
LOC: M SFHCADAM 10:54
PROVIDERS: ATTEND Family Medicine
DX: F32.9 Major depressive disorder, single episode, unspecified (principal); I10 Essential (primary) hypertension; E11.69 Type 2 diabetes mellitus with other specified complication; E66.9 Obesity, unspecified

== ENCOUNTER → 2024-02-24 | Outpatient (CLI) | payer MEDICARE | LOC: M WHC 09:00 | PROVIDERS: ATTEND Family Medicine | DX: Z12.31 Encounter for screening mammogram for malignant neoplasm of breast (principal); R92.313 Mammographic fatty tissue density, bilateral breasts; R92.8 Other abnormal and inconclusive findings on diagnostic imaging of breast ==

== ENCOUNTER → 2024-03-16 | Outpatient (CLI) | payer MEDICARE | LOC: M WHC 08:36 | PROVIDERS: ATTEND Family Medicine | DX: R92.2 Inconclusive mammogram (principal) | CPT/HCPCS: 77065; G0279 ==

== ENCOUNTER 2024-10-04 14:53 | Inpatient (IN) | payer MEDICARE ==
[~2024-10-04] VITALS: Ht 165.1 cm; Wt 90.4 kg
[~2024-10-04 14:53] MED LIST changes: -CYCL5TAB PO; +CYCL5TAB4 PO
[2024-10-04 15:47] VITALS: BP 164/74; TEMP 96.7; O2SAT 100
[2024-10-04] MEDS ORDERED: ISOVUE-370 76% 100ML VIAL As Ordered ONE (15:50)
[2024-10-04] MEDS: LABETALOL 100MG/20ML VIAL IV STA (15:56)
[2024-10-04 16:00] VITALS: BP 166/74; TEMP 96.7; O2SAT 97
[2024-10-04 16:11] LABS: BASO # 0.1 10^3/uL (0.0-0.2); BASO % 0.5 % (0.0-1.0); EOS # 0.7 10^3/uL (0.0-0.5); HEMATOCRIT 38.6 % (36.0-47.0); HEMOGLOBIN 13.1 g/dl (12.0-15.5); LYMPH % 21.3 % (24.0-44.0); MEAN CORPUSCULAR HEMOGLOBIN 37.8 pg (27.0-33.0); MEAN CORPUSCULAR HGB CONC 33.9 g/dl (32.0-36.5); MEAN CORPUSCULAR VOLUME 111.2 fl (80.0-96.0); MONO # 0.8 10^3/uL (0.0-0.8); MONO % 8.1 % (2.0-8.0); NEUTROPHILS # 5.7 10^3/uL (1.5-8.5); NEUTROPHILS % 61.6 % (36.0-66.0); PLATELET COUNT, AUTOMATED 428 10^3/uL (150-450); RED BLOOD COUNT 3.47 10^6/uL (4.00-5.40); WHITE BLOOD COUNT 9.2 10^3/uL (4.0-10.0)
[2024-10-04 16:15] VITALS: BP 162/79; TEMP 97.1; O2SAT 98
[2024-10-04 16:25] LABS: INR 0.94; PARTIAL THROMBOPLASTIN TIME 25.4 SECONDS (24.8-34.2); PROTHROMBIN TIME 12.8 SECONDS (12.5-14.5)
[2024-10-04 16:28] LABS: CK-MB VALUE MASS < 1.0 NG/ML (<3.6)
[2024-10-04 16:30] VITALS: BP 172/83; TEMP 97; O2SAT 98
[2024-10-04 16:30] LABS: BLOOD UREA NITROGEN 11 MG/DL (9-23); CALCIUM LEVEL 9.3 MG/DL (8.3-10.6); CARBON DIOXIDE LEVEL 27 MMOL/L (20-31); CHLORIDE LEVEL 104 MMOL/L (98-107); GLOMERULAR FILTRATION RATE > 60.0 (>45); GLUCOSE, FASTING 119 MG/DL (74-106); POTASSIUM SERUM 4.4 MMOL/L (3.5-5.1); SODIUM LEVEL 140 MMOL/L (136-145)
[2024-10-04 16:38] LABS: CPK CREATINE PHOSPHOKINASE 48 U/L (34-145); MB/CK RELATIVE INDEX 2.08 (< OR =4)
[2024-10-04 16:45] VITALS: BP 158/88; TEMP 97.1; O2SAT 99
[2024-10-04 17:45] VITALS: BP 177/83; TEMP 98; O2SAT 97
[2024-10-04] MEDS ORDERED: DEXTROSE 50% 50ML SYRINGE IV PRN (19:50)
[2024-10-04] MEDS ORDERED: GLUCAGON INJ 1MG VIAL SC PRN (19:50)
[2024-10-04] MEDS ORDERED: GLUCOSE 4 GM CHEW PO PRN (19:50)
[2024-10-04] MEDS: INSULIN LISPRO (NovoLOG) PER UNIT SC SCH (20:11)
[2024-10-04] MEDS: diazePAM 5MG TABLET PO ONE (21:05)
[2024-10-04 21:08] LABS: HEMOGLOBIN A1c 5.7 % (4.0-6.0)
[2024-10-04] MEDS ORDERED: HOME MED LIST COMPLETE! XX SCH (21:15)
[2024-10-04 22:08] LABS: ALBUMIN 3.6 G/DL (3.2-5.2); BILIRUBIN,DIRECT 0.3 MG/DL (<0.4); BILIRUBIN,TOTAL 0.7 MG/DL (0.3-1.2); CHOLESTEROL RISK RATIO 4.25 (<5); HDL CHOLESTEROL 53.6 MG/DL (>40); LDL CHOLESTEROL 147.2 MG/DL (<100); NON-HDL-C 174.4 MG/DL; TOTAL PROTEIN 7.2 G/DL (5.7-8.2)
[2024-10-04] MEDS ORDERED: ZONI50CA11 PO (22:20)
[2024-10-04] MEDS: AMITRIPTYLINE 50 MG TAB PO SCH (23:01)
[2024-10-04] MEDS: ATORVASTATIN 20 MG TAB PO SCH (23:01)
[2024-10-05] VITALS (12 sets, daily range): BP systolic 142–173; BP diastolic 68–98; TEMP 97–97.7; O2SAT 94–99
[2024-10-05] MEDS: LABETALOL 100MG/20ML VIAL IV ONE (00:35)
[2024-10-05] MEDS: FERROUS SULFATE 325MG TAB PO SCH (09:16)
[2024-10-05] MEDS: ASPIRIN 81MG ENTERIC TABLET PO SCH (09:16)
[2024-10-05] MEDS: CLOPIDOGREL 75 MG TAB PO SCH (09:16)
[2024-10-05] MEDS: ZONISAMIDE 50 MG CAP (ZONEGRAN) PO SCH (09:17)
[2024-10-05] MEDS: ursodioL 300MG CAP PO SCH (09:17)
[2024-10-05] MEDS: ACETAMINOPHEN 325 MG TAB PO PRN (13:52)
[2024-10-06] VITALS: O2SAT 97
[2024-10-06 04:51] VITALS: BP 140/98; TEMP 98.3; O2SAT 94
[2024-10-06 06:28] LABS: BASO # 0.1 10^3/uL (0.0-0.2); BASO % 0.9 % (0.0-1.0); EOS # 0.6 10^3/uL (0.0-0.5); HEMATOCRIT 35.6 % (36.0-47.0); HEMOGLOBIN 12.2 g/dl (12.0-15.5); LYMPH # 1.3 10^3/uL (1.5-5.0); LYMPH % 14.7 % (24.0-44.0); MEAN CORPUSCULAR HEMOGLOBIN 38.7 pg (27.0-33.0); MEAN CORPUSCULAR HGB CONC 34.3 g/dl (32.0-36.5); MONO # 0.8 10^3/uL (0.0-0.8); MONO % 9.3 % (2.0-8.0); NEUTROPHILS # 6.1 10^3/uL (1.5-8.5); NEUTROPHILS % 67.7 % (36.0-66.0); PLATELET COUNT, AUTOMATED 373 10^3/uL (150-450); RED BLOOD COUNT 3.15 10^6/uL (4.00-5.40)
[2024-10-06 06:42] LABS: BLOOD UREA NITROGEN 11 MG/DL (9-23); CALCIUM LEVEL 9.5 MG/DL (8.3-10.6); CARBON DIOXIDE LEVEL 23 MMOL/L (20-31); CHLORIDE LEVEL 105 MMOL/L (98-107); GLOMERULAR FILTRATION RATE > 60.0 (>45); GLUCOSE, FASTING 155 MG/DL (74-106); SODIUM LEVEL 139 MMOL/L (136-145)
[2024-10-06 07:00] VITALS: O2SAT 96
[2024-10-06 07:36] VITALS: BP 138/90; TEMP 97.5; O2SAT 96
[2024-10-06 08:00] VITALS: O2SAT 94
[2024-10-06] MEDS ORDERED: ELIQ5TAB PO (11:14)
[2024-10-06] MEDS ORDERED: ATOR80TA59 PO (11:14)
[2024-10-06] MEDS ORDERED: XARE20TA PO (12:41)
[2024-10-09 13:33] LABS: SSA SJOGRENS A <1.0 NEG AI (<1.0 NEG); SSB SJOGRENS B <1.0 NEG AI (<1.0 NEG)
[2024-10-09 23:23] LABS: ANTI THROMBIN 3 ANTIGEN IMMUNO 97 % normal (80-120)
== END 2024-10-06 14:05 | disposition home or self-care (01) | DRG 65 ==
LOC: M ED 14:53 → M ED INP 20:51 → M PCU 10-05 17:49
PROVIDERS: ADMIT Family Medicine; ATTEND Family Medicine
PROC: B246ZZZ Ultrasonography of Right and Left Heart (ICD-10-PCS; principal; 2024-10-05)
DX: I63.511 Cerebral infarction due to unspecified occlusion or stenosis of right middle cerebral artery (principal); I69.351 Hemiplegia and hemiparesis following cerebral infarction affecting right dominant side; I12.9 Hypertensive chronic kidney disease with stage 1 through stage 4 chronic kidney disease, or unspecified chronic kidney disease; E11.22 Type 2 diabetes mellitus with diabetic chronic kidney disease; R29.810 Facial weakness; K74.3 Primary biliary cirrhosis; N18.9 Chronic kidney disease, unspecified; F32.A Depression, unspecified; E78.5 Hyperlipidemia, unspecified; K76.0 Fatty (change of) liver, not elsewhere classified; I16.0 Hypertensive urgency; Z87.891 Personal history of nicotine dependence; Z79.82 Long term (current) use of aspirin; Z79.899 Other long term (current) drug therapy; Z88.0 Allergy status to penicillin

== ENCOUNTER → 2024-10-06 | Outpatient (CLI) | payer MEDICARE ==
[~2024-10-06] MED LIST changes: +ATOR80TA59 PO; +ELIQ5TAB PO; +XARE20TA PO
== END ==
LOC: M EKG 14:18
PROVIDERS: ATTEND Internal Medicine Nephrology
DX: I51.7 Cardiomegaly (principal); I50.30 Unspecified diastolic (congestive) heart failure; I35.8 Other nonrheumatic aortic valve disorders; I35.1 Nonrheumatic aortic (valve) insufficiency; I34.0 Nonrheumatic mitral (valve) insufficiency; I36.1 Nonrheumatic tricuspid (valve) insufficiency; I37.1 Nonrheumatic pulmonary valve insufficiency; Z53.9 Procedure and treatment not carried out, unspecified reason

== ENCOUNTER → 2024-11-08 | Outpatient (CLI) | payer MEDICARE | LOC: M WHC 08:50 | PROVIDERS: ATTEND Family Medicine | DX: R92.8 Other abnormal and inconclusive findings on diagnostic imaging of breast (principal) | CPT/HCPCS: 77065; G0279 ==

== ENCOUNTER → 2025-05-29 | Outpatient (CLI) | payer MEDICARE | LOC: M WHC 12:28 | PROVIDERS: ATTEND Family Medicine | DX: R92.8 Other abnormal and inconclusive findings on diagnostic imaging of breast (principal); R92.313 Mammographic fatty tissue density, bilateral breasts | CPT/HCPCS: 77066; G0279 ==

== ENCOUNTER → 2025-06-04 | Outpatient (REF) | payer MEDICARE ==
[2025-06-04 18:37] LABS: ALT/SGPT 31.0 U/L (7.0-40); AST/SGOT 27.0 U/L (<34); CALCIUM LEVEL 8.5 MG/DL (8.3-10.6); CARBON DIOXIDE LEVEL 26.0 MMOL/L (20-31); CHLORIDE LEVEL 109.0 MMOL/L (98-107); CHOLESTEROL LEVEL 139.0 MG/DL (<200); CHOLESTEROL RISK RATIO 2.23 (<5); CREATININE FOR GFR 0.91 MG/DL (0.55-1.30); GLOMERULAR FILTRATION RATE 70.9 (>45); LDL CHOLESTEROL 61.2 MG/DL (<100); NON-HDL-C 76.8 MG/DL; POTASSIUM SERUM 4.1 MMOL/L (3.5-5.1); SODIUM LEVEL 142.0 MMOL/L (136-145); TRIGLYCERIDES LEVEL 78.0 MG/DL (<150)
[2025-06-04 19:24] LABS: ESTIMATED AVERAGE GLUCOSE 166.0 MG/DL (60-110)
== END ==
LOC: M SFHCCAPE 08:46
PROVIDERS: ATTEND Family Medicine
DX: E11.69 Type 2 diabetes mellitus with other specified complication (principal); E78.5 Hyperlipidemia, unspecified

== ENCOUNTER → 2025-06-04 | Outpatient (REF) | payer MEDICARE ==
[2025-06-04 19:37] LABS: CREATININE FOR GFR 0.92 MG/DL (0.55-1.30); GLOMERULAR FILTRATION RATE 70.0 (>45)
== END ==
LOC: M LABDRWCV 17:59
PROVIDERS: ATTEND Psychiatry & Neurology Neurology
DX: I10 Essential (primary) hypertension (principal)